=== PATIENT | female | born 2000 | race African-American/Black ===

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

== ENCOUNTER 2022-01-01 12:14 | Emergency (ER) | payer MEDICAID ==
[~2022-01-01] VITALS: Ht 154.9 cm; Wt 54.5 kg
[~2022-01-01 12:14] MED LIST changes: +ZOFRAN ODT4 MG PO
[2022-01-01 13:07] VITALS: BP 119/87; TEMP 98.8
[2022-01-01 14:15] VITALS: PULSE 84
== END 2022-01-01 14:14 ==
LOC: COL.ER 12:14
DX: U07.1 COVID-19 (principal); Z87.09 Personal history of other diseases of the respiratory system; Z28.310 Unvaccinated for COVID-19

== ENCOUNTER 2022-02-22 05:38 | Emergency (ER) | payer MEDICAID ==
[~2022-02-22] VITALS: Ht 152.4 cm; Wt 56.8 kg
[2022-02-22 07:04] LABS: STREP SCREEN NEGATIVE
[2022-02-22] MEDS ORDERED: NASONEX SPRAY17 GM NS (07:11)
[2022-02-22] MEDS ORDERED: NAPROSYN500 MG PO (07:11)
[2022-02-22] MEDS ORDERED: SUDAFED30 MG PO (07:11)
[2022-02-22 07:34] VITALS: BP 107/53; PULSE 84; TEMP 98.3
== END 2022-02-22 07:34 | disposition home or self-care (01) ==
LOC: COL.ER 05:38
PROVIDERS: Emergency Medicine
DX: J01.90 Acute sinusitis, unspecified (principal); J02.9 Acute pharyngitis, unspecified; Z28.310 Unvaccinated for COVID-19
CPT/HCPCS: J8540